=== PATIENT | female | born 1990 | race Caucasian/White ===

== ENCOUNTER 2017-09-03 10:57 | Day surgery (SDC) | payer OTHER ==
--- NOTE | 2017-09-03 09:00 | HP ---
DATE OF SURGERY: 09/03/2017 HISTORY OF PRESENT ILLNESS: The patient is a 27 year-old who is having problems with increasing size, enlarging cyst or nodules chest and back increasing in size, increasing discomfort. She is concerned and desires definitive excision. PAST MEDICAL HISTORY: Some reflux and some anxiety. PAST SURGICAL HISTORY: Cholecystectomy in the past. MEDICATIONS: Ranitidine and amitriptyline. ALLERGIES: PENICILLIN. FAMILY HISTORY: Lung cancer and Parkinson's. SOCIAL HISTORY: No smoking or alcohol abuse. The patient did quit smoking back in June. She smoked half a pack per day prior to that. REVIEW OF SYSTEMS: Twelve systems reviewed per admission assessment. No chest pain or palpitations other systems negative or noncontributory as above and per preadmission questionnaire. PHYSICAL EXAMINATION: GENERAL: No acute distress. HEENT: Sclerae nonicteric. NECK: No JVD. CHEST: Clear to auscultation. Mid chest enlarging cyst or nodule. BACK: Enlarging cyst or nodule. CVS: Regular rate and rhythm. ABDOMEN: Soft. No peritoneal signs. EXTREMITIES: No significant edema. NEURO: Alert, moving extremities symmetrically. No gross motor deficits noted. IMPRESSION: Enlarging cyst or nodules back and chest. I feel she will benefit from excisional biopsy. Risks and benefits explained in detail but not limited to bleeding or infection, risk of wound dehiscence or infection possibly requiring packing, risk of aches, pain, burning or numbness possible detention or chronic in nature. She understands what we excise likely will not recur if benign on path but she could develop similar cysts or nodules adjacent to or elsewhere on her body. She understands all the above and agrees to the planned procedure. We will proceed with excisional biopsy of enlarging cyst or nodules chest and back as an outpatient.
[~2017-09-03 10:57] MED LIST: Lactated Ringers 1,000 ML IV SCH
[2017-09-03] MEDS ORDERED: Quelicin Fliptop 200 MG/10 ML IJ ONE (10:58)
[2017-09-03] MEDS ORDERED: TORAdol 30 mg Injection IJ ONE (10:58)
[2017-09-03] MEDS ORDERED: SUBLIMAZE 100 MCG/2 ML IV ONE (10:58)
[2017-09-03] MEDS ORDERED: DIPRIVAN 200 MG/20 ML IV ONE (10:58)
[2017-09-03] MEDS ORDERED: Decadron 4 MG INJ IV ONE (10:58)
[2017-09-03] MEDS ORDERED: Zemuron 100 MG/10 ML IJ ONE (10:58)
[2017-09-03] MEDS ORDERED: Zofran 4 MG/2 ML VIAL IV ONE (10:58)
[2017-09-03] MEDS ORDERED: Levofloxacin 500MG/100ML D5W 500 MG/100 ML BAG IV STA (11:12)
[2017-09-03] MEDS ORDERED: Lactated Ringers 1,000 ML IV ONE ×2 (11:17→12:23)
[2017-09-03] MEDS ORDERED: Sensorcaine 0.25% 10 ML ONE (12:23)
[2017-09-03] MEDS ORDERED: DILAUDID 2 MG INJECTION ONE (14:55)
[2017-09-03 17:09] VITALS: O2SAT 99
[2017-09-03 17:10] VITALS: BP 120/93; PULSE 82
--- NOTE | 2017-09-04 09:47 | OP ---
SURGERY DATE/TIME: 09/03/2017 1353 PREOPERATIVE DIAGNOSIS: Enlarging cyst or subcu nodule chest and back. POSTOPERATIVE DIAGNOSIS: Enlarging cyst or subcu nodule chest and back. PROCEDURES: 1) Excisional biopsy approximately 2 cm margin cyst back with intermediate closure. 2) Excisional biopsy approximately 1 cm margin cyst chest with intermediate closure. SURGEON: Dr. Arpit Helton. ANESTHESIA: General. ESTIMATED BLOOD LOSS: Minimal. INDICATIONS: As noted above. Risks and benefits explained in detail and not limited to and consent obtained. DESCRIPTION OF PROCEDURE AND FINDINGS: In the preoperative holding area the site had been confirmed and marked with the patient. The patient is taken to the operating room. General anesthesia introduced. Chest and breast area prepped and draped in usual sterile fashion. After official time out and no disagreement with planned procedure, marking in spindle-shaped fashion around what appeared to be a small, little pit. Dissection carried deep surrounding this inflamed what appeared to be a cyst dissecting down deep to normal appearing tissue. The specimen is passed off and measured about 1 cm in size. The wound was closed in intermediate fashion with interrupted 3-0 Vicryl in the deep superficial subcu. Skin closed with 4-0 Vicryl in running subcuticular fashion. 0.25% Marcaine local injected along the skin incision. Steri-Strips and sterile dressing applied. The patient tolerated the procedure well. There were no immediate complications. At this point the patient was repositioned, lateral position with the ivory bag axillary roll, appropriate padding and positioning per anesthesia and OR staff. The back is prepped and draped in usual sterile fashion. After official time out and no disagreement with planned procedure, there was a pit. It was unclear how large this cyst was going to be. Dissecting down to normal appearing tissue around this pit dissecting down around circumferentially around this cyst with reaction around the cyst measuring about 2 cm with margins dissecting down to normal appearing tissue. The specimen is passed off. There did not appear to be any other cysts or cyst material in the wound. The wound was irrigated out. Good hemostasis noted. Skin closed with interrupted 3-0 Vicryl in deep superficial subcu. Skin closed with 4-0 Vicryl in running subcuticular fashion with some interrupted 3-0 Prolene interrupted vertical mattress fashion used to reinforce the area given the location on the back. Steri-Strips and sterile dressing applied. The patient tolerated the procedure well. There were no immediate complications. There was no family available to discuss the findings with at this time. I will see her back in the office next week to address the findings.
== END 2017-09-03 16:30 | disposition home or self-care (01) ==
LOC: SDC 10:57
PROVIDERS: ATTEND Surgery
PROC: 0JB60ZZ Excision of Chest Subcutaneous Tissue and Fascia, Open Approach (ICD-10-PCS; principal; 2017-09-03)
PROC: 0JQ70ZZ Repair Back Subcutaneous Tissue and Fascia, Open Approach (ICD-10-PCS; 2017-09-03)
PROC: 0JB70ZZ Excision of Back Subcutaneous Tissue and Fascia, Open Approach (ICD-10-PCS; 2017-09-03)
PROC: 0JQ60ZZ Repair Chest Subcutaneous Tissue and Fascia, Open Approach (ICD-10-PCS; 2017-09-03)
DX: D23.5 Other benign neoplasm of skin of trunk (principal); R20.8 Other disturbances of skin sensation; K21.9 Gastro-esophageal reflux disease without esophagitis; F41.9 Anxiety disorder, unspecified; Z79.899 Other long term (current) drug therapy
CPT/HCPCS: 84703; 94250; J0330; J1100; J1170; J1885; J1956; J2405; J2704; J3010

== ENCOUNTER 2018-01-09 00:53 | Emergency (ER) | payer OTHER ==
[2018-01-09 01:01] VITALS: BP 118/76; PULSE 92; O2SAT 96
--- NOTE | 2018-01-09 01:16 | ERPHSYRPT ---
- History of Present Illness Time Seen by Provider: 01/09/18 01:08 Source: patient Exam Limitations: no limitations Patient Subjective Stated Complaint: Almost 15 weeks and is bleeding large clots Triage Nursing Assessment: Pt c/o of bleeding clots and is approx 15 weeks , bled some last Sunday for a couple of days but it wasn't as much, denies cramping, denies N&V, has 2 other children, vitals wnl, Physician History: The patient is a 27-year-old at nearly 15 weeks with her complaining of passing large clots vaginally tonight after having sexual intercourse. She also had mild vaginal bleeding one week ago. She has OB care in [place] and not locally. She has had prior ultrasounds that have been normal. Today she denies cramping or abdominal pain. She takes vitamin. Timing/Duration: today, sudden Activites at Onset: sexual activity Quality: other (none) Pain Radiation: none Severity of Pain-Max: none Severity of Pain-Current: none Prior abdominal problems: similar symptoms Sexual intercourse history: single partner Modifying Factors: Improves With: nothing Associated Symptoms: vaginal discharge (blood) Allergies/Adverse Reactions: Penicillins Allergy (Verified 01/09/18 01:02) Home Medications: Vits W-Ca,Fe,FA(<1Mg) [] 1 each PO DAILY 01/09/18 [History] Hx Tetanus, Diphtheria Vaccination/Date Given: Yes Hx Influenza Vaccination/Date Given: Yes Hx Pneumococcal Vaccination/Date Given: No - Review of Systems Constitutional: No Fever, No Chills Eyes: No Symptoms Ears, Nose, & Throat: No Symptoms Respiratory: No Cough, No Dyspnea Cardiac: No Chest Pain, No Edema, No Syncope Abdominal/Gastrointestinal: No Abdominal Pain, No Nausea, No Vomiting, No Diarrhea Genitourinary Symptoms: Vaginal Bleeding, No Dysuria Musculoskeletal: No Back Pain, No Neck Pain Skin: No Rash Neurological: No Dizziness, No Focal Weakness, No Sensory Changes Psychological: No Symptoms Endocrine: No Symptoms Hematologic/Lymphatic: No Symptoms Immunological/Allergic: No Symptoms All Other Systems: Reviewed and Negative - Past Medical History Pertinent Past Medical History: Yes Neurological History: No Pertinent History ENT History: No Pertinent History Cardiac History: No Pertinent History Respiratory History: No Pertinent History Endocrine Medical History: No Pertinent History Musculoskeletal History: No Pertinent History GI Medical History: GERD History: No Pertinent History Psycho-Social History: No Pertinent History Female Reproductive Disorders: No Pertinent History - Past Surgical History Past Surgical History: Yes Neuro Surgical History: No Pertinent History Cardiac: No Pertinent History Respiratory: No Pertinent History Gastrointestinal: Cholecystectomy Genitourinary: No Pertinent History Musculoskeletal: No Pertinent History Female Surgical History: No Pertinent History - Social History Smoking Status: Former smoker Exposure to second hand smoke: No Drug Use: none Patient Lives Alone: No - Female History Hx Now: Yes Expected Date of Delivery: 07/07/18 - Nursing Vital Signs Nursing Vital Signs: Initial Vital Signs Temperature 99.2 F 01/09/18 00:54 Pulse Rate 92 H 01/09/18 00:54 Blood Pressure 118/76 01/09/18 00:54 O2 Sat by Pulse Oximetry 96 01/09/18 00:54 Pain Scale Pain Intensity 0 - Physical Exam General Appearance: no apparent distress, alert Eye Exam: PERRL/EOMI, eyes nml inspection Ears, Nose, Throat Exam: normal ENT inspection, TMs normal, pharynx normal, moist mucous membranes Neck Exam: normal inspection, non-tender, supple, full range of motion Respiratory Exam: normal breath sounds, lungs clear, No respiratory distress Cardiovascular Exam: regular rate/rhythm, normal heart sounds, normal peripheral pulses Gastrointestinal/Abdomen Exam: soft, No tenderness, No mass Pelvic Exam: not done Rectal Exam: not done Back Exam: normal inspection, normal range of motion, No CVA tenderness, No vertebral tenderness Extremity Exam: normal inspection, normal range of motion, pelvis stable Neurologic Exam: alert, oriented x 3, cooperative, chief electrician II-XII nml as tested, normal mood/affect, sensation nml, No motor deficits Skin Exam: normal color, warm, dry Lymphatic Exam: No adenopathy SpO2 Interpretation: normal SpO2: 96 Oxygen Delivery: Room Air - Radiology Ultrasound Exam OB Ultrasound: negative, Other (FHR 152; cervix closed. fetus measures 14 wks 3 days, per U/S tech) Ordered Tests: Active Orders 24 hr Category Date Time Status Clean Catch Urine Specimen STAT Care 01/09/18 01:20 Active Heart Tones-ED STAT Care 01/09/18 01:20 Active IV Insertion STAT Care 01/09/18 01:20 Active OB >14 WKS 1st GESTATION [US] Stat Exams 01/09/18 01:21 Taken BMP Stat Lab 01/09/18 01:29 Completed CBC W DIFF Stat Lab 01/09/18 01:29 Completed HCG, Quantitative (Inhouse) Stat Lab 01/09/18 01:29 Completed UA W/RFX UR CULTURE Stat Lab 01/09/18 02:21 Received Medication Summary Discontinued Medications Generic Name Dose Route Start Last Admin Trade Name Delfina PRN Reason Stop Dose Admin Sodium Chloride 1,000 mls @ 999 mls/hr 01/09/18 01:20 01/09/18 01:27 Sodium Chloride 0.9% 1000 Ml IV 01/09/18 02:20 999 mls/hr .Q1H1M STA Administration Sodium Chloride Confirm 01/09/18 01:28 Sodium Chloride 0.9% 1000 Ml Administered 01/09/18 01:29 Dose 1,000 mls @ ud .ROUTE .STK-MED ONE Lab/Rad Data: Laboratory Result Diagrams 01/09/18 01:29 01/09/18 01:29 Laboratory Results 01/09/18 01/09/18 01/09/18 Range/Units 02:21 01:29 01:29 WBC 11.7 H (4.0-10.5) K/mm3 RBC 4.09 L (4.1-5.4) M/mm3 Hgb 13.0 (12.0-16.0) gm/dl Hct 35.8 (35-47) % MCV 87.5 (78-100) fl MCH 31.7 (26-32) pg MCHC 36.3 H (32-36) g/dl RDW 12.9 (11.5-14.0) % Plt Count 295 (150-450) K/mm3 MPV 10.1 H (6-9.5) fl Gran % 60.2 (36.0-66.0) % Eos # (Auto) 0.11 (0-0.5) Absolute Lymphs (auto) 3.66 (1.0-4.6) Absolute Monos (auto) 0.87 (0.0-1.3) Lymphocytes % 31.2 (24.0-44.0) % Monocytes % 7.4 (0.0-12.0) % Eosinophils % 0.9 (0.00-5.0) % Basophils % 0.3 (0.0-0.4) % Absolute Granulocytes 7.05 H (1.4-6.9) Basophils # 0.03 (0-0.4) Sodium 138 (137-145) mmol/L Potassium 3.5 (3.5-5.1) mmol/L Chloride 104 (98-107) mmol/L Carbon Dioxide 25 (22-30) mmol/L Anion Gap 12.1 (5-15) MEQ/L BUN 5 L (7-17) mg/dL Creatinine 0.43 L (0.52-1.04) mg/dL Estimated GFR > 60.0 ML/MIN Glucose 96 (74-106) mg/dL Calcium 10.2 (8.4-10.2) mg/dL Beta HCG, Quant 27435 mIU/ml Ur Collection Type Pending Urine Color Pending Urine Appearance Pending Urine pH Pending Ur Specific [place] Pending Urine Protein Pending Urine Ketones Pending Urine Blood Pending Urine Nitrite Pending Urine Bilirubin Pending Urine Urobilinogen Pending Ur Leukocyte Esterase Pending Urine Culture Reflexed Pending Urine Glucose Pending Specimen Received Pending - Progress Progress: improved, unchanged Air Movement: good Progress Note: 01/09/18 01:19 heart tones found; FHT 152 bpm. Blood Culture(s) Obtained: No Antibiotics given: No Counseled pt/family regarding: lab results, diagnosis, need for follow-up, rad results - Departure Time of Disposition: 02:34 Departure Disposition: Home Clinical Impression: Vaginal bleeding during Condition: Stable Critical Care Time: No Referrals: FREDERICK PHILLIPS [Primary Care Provider] - Additional Instructions: You have an episode of vaginal bleeding while . Remain on bedrest until following up with your OB doctor later this week. Refrain from sexual intercourse until following up with your OB doctor.
[2018-01-09] MEDS ORDERED: Sodium Chloride 0.9% 1000 ML 1,000 ML IV STA (01:20)
[2018-01-09] MEDS ORDERED: Sodium Chloride 0.9% 1000 ML 1,000 ML ONE (01:28)
[2018-01-09 01:31] LABS: BASOPHIL % 0.3 % (0.0-0.4); Basophil (Absolute #) 0.03 (0-0.4); Eosinophil % 0.9 % (0.00-5.0); Eosinophil (Absolute #) 0.11 (0-0.5); Granulocyte Absolute (ANC) 7.05 (1.4-6.9); Granulocytes % 60.2 % (36.0-66.0); Hematocrit 35.8 % (35-47); Lymphocyte (Absolute #) 3.66 (1.0-4.6); Lymphocytes % 31.2 % (24.0-44.0); Mean Cell Volume 87.5 fl (78-100); Mean Corpuscular Hemoglobin 31.7 pg (26-32); Mean Corpuscular Hgb Concent. 36.3 g/dl (32-36); Mean Platelet Volume 10.1 fl (6-9.5); Monocyte (Absolute #) 0.87 (0.0-1.3); Monocytes % 7.4 % (0.0-12.0); Platelet Count 295 K/mm3 (150-450); Red Blood Count 4.09 M/mm3 (4.1-5.4); Red Cell Distribution Width 12.9 % (11.5-14.0); White Blood Count 11.7 K/mm3 (4.0-10.5)
[2018-01-09 02:06] LABS: ANION GAP 12.1 MEQ/L (5-15); BLOOD UREA NITROGEN 5 mg/dL (7-17); CHLORIDE 104 mmol/L (98-107); Calcium 10.2 mg/dL (8.4-10.2); Carbon Dioxide 25 mmol/L (22-30); Creatinine 1 0.43 mg/dL (0.52-1.04); Glucose 96 mg/dL (74-106); Potassium 3.5 mmol/L (3.5-5.1); SODIUM 138 mmol/L (137-145)
[2018-01-09 02:31] LABS: HCG, Quantitative (Inhouse) 38398 mIU/ml
[2018-01-09 02:33] LABS: Appearance SLIGHTLY CLOUDY (CLEAR); Bacteria FEW /HPF (NEGATIVE); Bilirubin NEGATIVE (NEGATIVE); Blood 250 Ery/ul (0-5); Epithelial Cells FEW /HPF (FEW); Glucose NEGATIVE (NEGATIVE); Ketones NEGATIVE (NEGATIVE); Leukocyte Esterase TRACE (NEGATIVE); Nitrite NEGATIVE (NEGATIVE); Protein,Urine Dip NEGATIVE (Negative); RBC 50-100 /HPF (0-2); Urobilinogen NORMAL mg/dL (0-1)
--- NOTE | 2018-01-09 08:37 | XRAY ---
Exam: OB ultrasound greater than 14 weeks examination from 01/09/2018. Comparison: OB ultrasound examination less than 14 weeks from 11/28/2017. Indication: Vaginal bleeding during early second trimester . The exam was performed on an emergency basis at 0146 hours on 01/09/2018. Findings: A single live intrauterine fetus was identified in a variable lie. On some images the fetus appears to be breech and other images it appears to be relatively transverse. heart rate measured 152 bpm. Early formation of the placenta appears to be anterior. I see no evidence of placenta abruption or placenta previa. The length of the maternal cervical canal is 4.01 cm which is within normal limits. The maternal cervix appears closed. Qualitatively, the amount of amniotic fluid appears unremarkable. An amniotic fluid index was not obtained. Measurements of the biparietal diameter, head circumference, abdominal circumference, and femur length suggest an average composite gestational age of 14 weeks 3 days plus or -1 week 0 days yielding an estimated due date of 07/07/2018. This is the exact accordance with the gestational age by dates as well as the prior OB ultrasound exam, i.e. satisfactory intrauterine growth since the prior exam of 11/28/2017. Estimated weight is 100.85 g plus or -15.13 g (4 pounds plus or -1 ounce). This is in the 44.5 percentile. Both cephalic index and head circumference to abdominal circumference ratios are within normal limits. A detailed anatomy scan was not performed on this emergent ultrasound. Impression: 1. 14 week 3 day single live intrauterine fetus in variable lie representing normal intrauterine growth since the prior OB ultrasound exam from 11/28/2017. The heart rate measured 152 bpm. 2. The placenta is anterior. I see no evidence of retroplacental clot or abruption of the placenta. Also, no placenta previa is seen. 3. The amount of amniotic fluid appears qualitatively normal. 4. The maternal cervical canal measures 4.01 cm in length is normal. The maternal cervix appears closed.
== END 2018-01-09 02:47 | disposition home or self-care (01) ==
LOC: ED 00:53
DX: O46.92 Antepartum hemorrhage, unspecified, second trimester (principal); Z3A.15 15 weeks gestation of pregnancy
CPT/HCPCS: 36000; 36415; 76805; 80048; 81000; 84702; 85025; 87086; 96360; 99284

== ENCOUNTER 2018-04-26 09:07 | Observation (INO) | payer OTHER ==
--- NOTE | 2018-04-26 09:21 | ERPHSYRPT ---
- History of Present Illness Time Seen by Provider: 04/26/18 09:18 Source: patient Physician History: mild ache sacrum today at work, slipped on the ice, no bleeding, no abdominal pain, no vaginal bleeding, pt ambulatory, pt refused pain med, no other injury, no neck pain Allergies/Adverse Reactions: Penicillins Allergy (Verified 04/26/18 09:20) Home Medications: Vits W-Ca,Fe,FA(<1Mg) [] 1 each PO DAILY 01/09/18 [History] Hx Tetanus, Diphtheria Vaccination/Date Given: Yes Hx Influenza Vaccination/Date Given: Yes Hx Pneumococcal Vaccination/Date Given: No - Review of Systems Constitutional: No Fatigue Eyes: No Vision Changes Respiratory: No Dyspnea Cardiac: No Chest Pain Abdominal/Gastrointestinal: No Abdominal Pain Musculoskeletal: Fall Neurological: No Dizziness - Past Medical History Pertinent Past Medical History: Yes Neurological History: No Pertinent History ENT History: No Pertinent History Cardiac History: No Pertinent History Respiratory History: No Pertinent History Endocrine Medical History: No Pertinent History Musculoskeletal History: No Pertinent History GI Medical History: GERD History: No Pertinent History Psycho-Social History: No Pertinent History Female Reproductive Disorders: No Pertinent History - Past Surgical History Past Surgical History: Yes Neuro Surgical History: No Pertinent History Cardiac: No Pertinent History Respiratory: No Pertinent History Gastrointestinal: Cholecystectomy Genitourinary: No Pertinent History Musculoskeletal: No Pertinent History Female Surgical History: No Pertinent History - Social History Smoking Status: Former smoker Exposure to second hand smoke: No Drug Use: none Patient Lives Alone: No - Nursing Vital Signs Nursing Vital Signs: Initial Vital Signs Temperature 98.0 F 04/26/18 09:11 Pulse Rate 98 H 04/26/18 09:11 Respiratory Rate 16 04/26/18 09:11 Blood Pressure 117/76 04/26/18 09:11 O2 Sat by Pulse Oximetry 100 04/26/18 09:11 Pain Scale Pain Intensity 3 - Physical Exam General Appearance: no apparent distress Eye Exam: eyes nml inspection Respiratory Exam: No respiratory distress Back Exam: other (tender sacrum, nontender midline spine, no sts, no ecchymosis) Extremity Exam: normal range of motion Neurologic Exam: alert, oriented x 3, cooperative, normal mood/affect Skin Exam: normal color, warm, dry - Course Nursing assessment & vital signs reviewed: Yes Ordered Tests: Active Orders 24 hr Category Date Time Status Heart Tones-ED STAT Care 04/26/18 09:17 Active - Progress Progress: unchanged Progress Note: 04/26/18 09:30 d/w Dr Simeon and the pt, will defer an xray a this time, send to L and D for monitoring Discussed with .: Cailin Will see patient in: hospital (observation) Counseled pt/family regarding: diagnosis - Departure Time of Disposition: 09:31 Departure Disposition: Observation Clinical Impression: Back injury Qualifiers: Encounter type: initial encounter Qualified Code(s): S39.92XA - Unspecified injury of lower back, initial encounter Condition: Stable Critical Care Time: No Referrals: FREDERICK SIMEON [Primary Care Provider] - Instructions: Contusion (DC)
[2018-04-26 09:58] VITALS: O2SAT 98
--- NOTE | 2018-04-26 11:02 | XRAY ---
Indication: Status post fall. 2-dimensional OB ultrasound performed. Comparison: January 09, 2018. Again there is a single viable intrauterine currently in breech presentation. Normal four-chamber heart with heart rate 163 BPM. Normal three-vessel cord and cord insertion. Visualized head, stomach, kidneys, and bladder are unremarkable. Anterior placenta without abruption/previa. BPD measures 7.69 cm corresponding to 30 weeks 6 days. HC measures 27.19 cm corresponding to 29 weeks 5 days. AC measures 26.33 cm corresponding to 30 weeks 3 days. FL measures 5.62 cm corresponding to 29 weeks 4 days. GLORIA is 10.1 cm. Impression: Again single viable intrauterine with mean gestational age 30 weeks 1 day. Normal progression of . No new/acute findings.
[2018-04-26 14:02] VITALS: BP 119/58; PULSE 110
== END 2018-04-26 15:15 | disposition home or self-care (01) ==
LOC: ED 09:07 → OB 09:48
PROVIDERS: ADMIT Family Medicine; ATTEND Family Medicine
DX: Z34.92 Encounter for supervision of normal pregnancy, unspecified, second trimester (principal); S39.92XA Unspecified injury of lower back, initial encounter; W00.0XXA Fall on same level due to ice and snow, initial encounter; Y93.01 Activity, walking, marching and hiking; Y92.480 Sidewalk as the place of occurrence of the external cause; Y99.0 Civilian activity done for income or pay
CPT/HCPCS: 76805; 99284; G0378

== ENCOUNTER 2020-07-06 07:14 | Inpatient (IN) | payer OTHER ==
[2020-07-06] MEDS ORDERED: TYLENOL EXTRA STRENGTH 500 MG PO PRN (07:49)
[2020-07-06] MEDS ORDERED: Lactated Ringers 1,000 ML IV SCH (08:00)
[2020-07-06] MEDS ORDERED: PITOCIN 30 UNITS/ LR 500 ML 30 UNITS/500 ML IV.SOLN. IV SCH (08:00)
[2020-07-06 08:18] LABS: Amphetamine,Urine NEGATIVE (NEGATIVE); Barbiturate,Urine NEGATIVE (NEGATIVE); Benzodiazepine,Urine NEGATIVE (NEGATIVE); Cocaine,Urine NEGATIVE (NEGATIVE); Methadone,Urine NEGATIVE (NEGATIVE); Opiate,Urine NEGATIVE (NEGATIVE); PCP,Urine NEGATIVE (NEGATIVE); THC,Urine NEGATIVE (NEGATIVE)
[2020-07-06 08:21] LABS: Absolute Neutrophil Ct (ANC) 5.48 (1.4-6.9); BASOPHIL % 0.4 % (0.0-0.4); Basophil (Absolute #) 0.04 (0-0.4); Eosinophil % 0.9 % (0.00-5.0); Eosinophil (Absolute #) 0.08 (0-0.5); Hematocrit 32.9 % (35-47); Hemoglobin 10.6 gm/dl (12.0-16.0); Lymphocyte (Absolute #) 2.46 (1.0-4.6); Lymphocytes % 27.2 % (24.0-44.0); Mean Cell Volume 85.2 fl (78-100); Mean Corpuscular Hemoglobin 27.5 pg (26-32); Mean Corpuscular Hgb Concent. 32.2 g/dl (32-36); Mean Platelet Volume 10.7 fl (7.5-11.0); Monocyte (Absolute #) 0.97 (0.0-1.3); Monocytes % 10.7 % (0.0-12.0); Neutrophil % 60.8 % (36.0-66.0); Platelet Count 310 K/mm3 (150-450); Red Blood Count 3.86 M/mm3 (4.1-5.4)
[2020-07-06] MEDS ORDERED: OB EPIDURAL NAROPIN/SUFENTANIL IN NACL EPIDURAL PRN (16:15)
[2020-07-06] MEDS ORDERED: Lactated Ringers 1,000 ML IV ONE (16:15)
[2020-07-06] MEDS ORDERED: Ephedrine Sulfate 50 MG/ML IV PRN (16:15)
[2020-07-06] MEDS ORDERED: XYLOCAINE 2%/Epi 1:200000 20ML VIAL MPF ONE (18:51)
[2020-07-06] MEDS ORDERED: Pitocin 10 UNITS/ML ONE ×2 (18:54→19:32)
[2020-07-06] MEDS ORDERED: CLINDAMYCIN-D5W 900 MG/50 ML*** 900 MG/50 ML BAG IV ONE (19:09)
[2020-07-06] MEDS ORDERED: Astramorph-Pf 5 MG/10 ML ONE (19:12)
[2020-07-06] MEDS ORDERED: Versed 2 MG/2 ML Injection ONE (19:16)
[2020-07-06] MEDS ORDERED: MARCAINE 0.5%-EPI 1:200,000 VL IJ ONE (19:39)
[2020-07-06] MEDS ORDERED: DEMEROL 50 MG ONE (20:08)
[2020-07-06 20:34] LABS: ALBUMIN 3.2 g/dL (3.5-5.0); ALKALINE PHOSPHATASE 186 U/L (38-126); ANION GAP 14.4 MEQ/L (5-15); BLOOD UREA NITROGEN 9 mg/dL (7-17); CHLORIDE 105 mmol/L (98-107); Creatinine 1 0.64 mg/dL (0.52-1.04); EST GLOMERULAR FILTRATION RATE > 60.0 ML/MIN; Glucose 156 mg/dL (74-106); Potassium 3.3 mmol/L (3.5-5.1); SGOT/AST 25 U/L (14-36); SGPT/ALT 18 U/L (0-35); SODIUM 131 mmol/L (137-145); Total Protein 6.2 g/dL (6.3-8.2)
[2020-07-06 20:43] LABS: Carbon Dioxide 15 mmol/L (22-30)
[2020-07-06 22:05] LABS: ABO TYPING O; ANTIBODY SCREEN NEGATIVE (NEGATIVE); RH TYPING NEGATIVE
[2020-07-06] MEDS ORDERED: Dulcolax 10 MG SUPP PR PRN (22:49)
[2020-07-06] MEDS ORDERED: LANSINOH 40 GM TOP PRN (22:49)
[2020-07-06] MEDS ORDERED: TUCKS TP PRN (22:49)
[2020-07-06] MEDS ORDERED: Anucort-HC SUPPOSITORY PR PRN (22:49)
[2020-07-06] MEDS ORDERED: Mylicon 80MG PO PRN (22:49)
[2020-07-06] MEDS ORDERED: CORTISONE 1% CREAM TP PRN (22:49)
[2020-07-06 22:50] LABS: Appearance SLIGHTLY CLOUDY (CLEAR); Bilirubin NEGATIVE (NEGATIVE); Blood SMALL Ery/ul (0-5); Glucose >=500 mg/dL (NEGATIVE); Ketones MODERATE (NEGATIVE); Leukocyte Esterase NEGATIVE (NEGATIVE); Mucus SLIGHT /HPF (NEGATIVE); Nitrite NEGATIVE (NEGATIVE); Protein,Urine Dip 100 (Negative); Specific Gravity 1.017 (1.005-1.025); Urobilinogen NEGATIVE mg/dL (0-1)
[2020-07-06] MEDS: Sodium Chloride 0.9% 1000 ML 1,000 ML IV SCH (23:03)
[2020-07-06] MEDS ORDERED: Nubain 10 MG/ML IV PRN (23:04)
[2020-07-06] MEDS ORDERED: BENADRYL 50 MG/ML IV PRN (23:04)
[2020-07-06] MEDS ORDERED: HOLD NARCOTIC ANALGESICS AND SEDATIVES X24 HR MC PRN (23:04)
[2020-07-06] MEDS ORDERED: MORPHINE SULFATE 2 MG INJ IV PRN (23:04)
[2020-07-06] MEDS ORDERED: Narcan 0.4 MG/ML IV PRN (23:04)
[2020-07-06] MEDS ORDERED: CLARITIN 10 MG PO PRN (23:04)
[2020-07-06] MEDS ORDERED: Zofran 4 MG/2 ML VIAL IV PRN (23:04)
[2020-07-06] MEDS ORDERED: DEMEROL 50 MG IV PRN (23:04)
[2020-07-07] MEDS: CLINDAMYCIN-D5W 900 MG/50 ML*** 900 MG/50 ML BAG IV SCH ×2 (03:24→11:15)
[2020-07-07] MEDS: PERCOCET TABLET 5/325MG PO PRN ×3 (05:09→21:11)
[2020-07-07 05:16] LABS: Absolute Neutrophil Ct (ANC) 12.66 (1.4-6.9); BASOPHIL % 0.1 % (0.0-0.4); Basophil (Absolute #) 0.02 (0-0.4); Eosinophil % 0.1 % (0.00-5.0); Eosinophil (Absolute #) 0.01 (0-0.5); Hematocrit 26.8 % (35-47); Hemoglobin 8.5 gm/dl (12.0-16.0); Lymphocytes % 15.4 % (24.0-44.0); Mean Cell Volume 86.7 fl (78-100); Mean Corpuscular Hemoglobin 27.5 pg (26-32); Mean Corpuscular Hgb Concent. 31.7 g/dl (32-36); Mean Platelet Volume 10.6 fl (7.5-11.0); Monocyte (Absolute #) 1.04 (0.0-1.3); Monocytes % 6.4 % (0.0-12.0); Platelet Count 260 K/mm3 (150-450); Red Blood Count 3.09 M/mm3 (4.1-5.4); Red Cell Distribution Width 13.8 % (11.5-14.0); White Blood Count 16.2 K/mm3 (4.0-10.5)
[2020-07-07 05:18] LABS: ANION GAP 5.7 MEQ/L (5-15); BLOOD UREA NITROGEN 7 mg/dL (7-17); CHLORIDE 107 mmol/L (98-107); Calcium 8.5 mg/dL (8.4-10.2); Carbon Dioxide 24 mmol/L (22-30); Creatinine 1 0.57 mg/dL (0.52-1.04); EST GLOMERULAR FILTRATION RATE > 60.0 ML/MIN; Glucose 86 mg/dL (74-106); SODIUM 132 mmol/L (137-145)
[2020-07-07 05:44] LABS: Potassium 4.3 mmol/L (3.5-5.1)
--- NOTE | 2020-07-07 08:08 | PCM.NOTE ---
Date and Time: 07/07/20806 Subjective Assessment: POD 1 SP CSECTION PT RESTING IN BED AND DOING WELL. ABLE TO AMBULATE AND TOLERATE DIET. VSS AFEBRILE ABD; SOFT INCISION C/D/INTACT UTERUS; FIRM LOCHIA; MILD HGB; 8.5 A/P SP CSECTION POD 1 WITH ANEMIA WILL REPEAT CBC AT NOON TODAY CPM OBJECTIVE DATA Vital Signs: Vital Signs - 24 hr Temp Pulse Resp BP BP Pulse Ox 07/07/20 06:00 98 F 95 H 20 101/56 100 07/07/20 05:00 98 F 108 H 18 100 07/07/20 04:00 98 07/07/20 03:00 97 07/07/20 02:00 99 07/07/20 01:15 99 F 83 18 117/62 97 07/07/20 01:00 99 07/07/20 00:26 98 F 94 H 20 117/62 100 07/07/20 00:00 99.2 F 111 H 16 132/76 98 07/06/20 23:30 114 H 20 125/71 98 07/06/20 23:26 99 H 20 125/71 99 07/06/20 23:00 101 H 18 122/82 97 07/06/20 22:45 105 H 18 118/78 98 07/06/20 22:30 114 H 20 129/77 97 07/06/20 22:26 114 H 20 129/77 98 07/06/20 22:11 98.5 F 93 H 18 135/86 98 07/06/20 22:00 98.5 F 92 H 20 135/86 100 07/06/20 21:00 125/58 07/06/20 20:52 97.9 F 108 H 20 167/67 97 07/06/20 20:38 97.6 F 100 H 20 116/58 98 07/06/20 19:00 94 H 18 103/59 07/06/20 18:30 107 H 18 116/65 07/06/20 18:00 111 H 113/56 100 07/06/20 17:30 104 H 107/53 07/06/20 17:00 98.1 F 94 H 18 125/58 100 07/06/20 16:30 98.1 F 07/06/20 13:32 98.1 F 07/06/20 12:00 87 18 112/70 Pain Assessment - Last Documented Pain Intensity [Anterior/ 0 Posterior] Pain Intensity 0 Pain Scale Used 0-10 Pain Scale Intake and Output: Intake & Output 07/04/20 07/05/20 07/06/20 07/07/20 11:59 11:59 11:59 11:59 Intake Total 750 Output Total 1410 Balance -660 Weight 90.718 kg Lab Results: Lab Results-Last 24 Hours 07/06/20 07/06/20 07/06/20 Range/Units 07:49 08:03 15:42 WBC 9.0 (4.0-10.5) K/mm3 RBC 3.86 L (4.1-5.4) M/mm3 Hgb 10.6 L (12.0-16.0) gm/dl Hct 32.9 L (35-47) % MCV 85.2 (78-100) fl MCH 27.5 (26-32) pg MCHC 32.2 (32-36) g/dl RDW 14.0 (11.5-14.0) % Plt Count 310 (150-450) K/mm3 MPV 10.7 (7.5-11.0) fl Gran % 60.8 (36.0-66.0) % Eos # (Auto) 0.08 (0-0.5) Absolute Lymphs (auto) 2.46 (1.0-4.6) Absolute Monos (auto) 0.97 (0.0-1.3) Lymphocytes % 27.2 (24.0-44.0) % Monocytes % 10.7 (0.0-12.0) % Eosinophils % 0.9 (0.00-5.0) % Basophils % 0.4 (0.0-0.4) % Absolute Granulocytes 5.48 (1.4-6.9) Basophils # 0.04 (0-0.4) Kleihauer-Betke F Hgb Sodium (137-145) mmol/L Potassium (3.5-5.1) mmol/L Chloride (98-107) mmol/L Carbon Dioxide (22-30) mmol/L Anion Gap (5-15) MEQ/L BUN (7-17) mg/dL Creatinine (0.52-1.04) mg/dL Estimated GFR ML/MIN Glucose (74-106) mg/dL Calcium (8.4-10.2) mg/dL Total Bilirubin (0.2-1.3) mg/dL AST (14-36) U/L ALT (0-35) U/L Alkaline Phosphatase (38-126) U/L Serum Total Protein (6.3-8.2) g/dL Albumin (3.5-5.0) g/dL Urine Color (YELLOW) Urine Appearance (CLEAR) Urine pH (5-6) Ur Specific [place] (1.005-1.025) Urine Protein (Negative) Urine Ketones (NEGATIVE) Urine Blood (0-5) Leobardo/ul Urine Nitrite (NEGATIVE) Urine Bilirubin (NEGATIVE) Urine Urobilinogen (0-1) mg/dL Ur Leukocyte Esterase (NEGATIVE) Urine WBC (Auto) (0-5) /HPF Urine RBC (Auto) (0-2) /HPF U Epithel Cells (Auto) (FEW) /HPF Urine Bacteria (Auto) (NEGATIVE) /HPF Urine Mucus (Auto) (NEGATIVE) /HPF Urine Culture Reflexed (NO) Urine Glucose (NEGATIVE) mg/dL POC Amnio Swab Test Positive Urine Opiates Level NEGATIVE (NEGATIVE) Ur Methadone NEGATIVE (NEGATIVE) Urine Barbiturates NEGATIVE (NEGATIVE) Ur Phencyclidine (PCP) NEGATIVE (NEGATIVE) Urine Amphetamine NEGATIVE (NEGATIVE) U Benzodiazepine Level NEGATIVE (NEGATIVE) Urine Cocaine NEGATIVE (NEGATIVE) Urine Marijuana (THC) NEGATIVE (NEGATIVE) Antibody Screen (NEGATIVE) ABO Group Rh Factor 07/06/20 07/06/20 07/06/20 Range/Units 20:12 20:12 20:18 WBC (4.0-10.5) K/mm3 RBC (4.1-5.4) M/mm3 Hgb (12.0-16.0) gm/dl Hct (35-47) % MCV (78-100) fl MCH (26-32) pg MCHC (32-36) g/dl RDW (11.5-14.0) % Plt Count (150-450) K/mm3 MPV (7.5-11.0) fl Gran % (36.0-66.0) % Eos # (Auto) (0-0.5) Absolute Lymphs (auto) (1.0-4.6) Absolute Monos (auto) (0.0-1.3) Lymphocytes % (24.0-44.0) % Monocytes % (0.0-12.0) % Eosinophils % (0.00-5.0) % Basophils % (0.0-0.4) % Absolute Granulocytes (1.4-6.9) Basophils # (0-0.4) Kleihauer-Betke F Hgb SEE SEPARATE REPORT Sodium 131 L (137-145) mmol/L Potassium 3.3 L (3.5-5.1) mmol/L Chloride 105 (98-107) mmol/L Carbon Dioxide 15 L* (22-30) mmol/L Anion Gap 14.4 (5-15) MEQ/L BUN 9 (7-17) mg/dL Creatinine 0.64 (0.52-1.04) mg/dL Estimated GFR > 60.0 ML/MIN Glucose 156 H (74-106) mg/dL Calcium 9.0 (8.4-10.2) mg/dL Total Bilirubin 0.70 (0.2-1.3) mg/dL AST 25 (14-36) U/L ALT 18 (0-35) U/L Alkaline Phosphatase 186 H (38-126) U/L Serum Total Protein 6.2 L (6.3-8.2) g/dL Albumin 3.2 L (3.5-5.0) g/dL Urine Color (YELLOW) Urine Appearance (CLEAR) Urine pH (5-6) Ur Specific [place] (1.005-1.025) Urine Protein (Negative) Urine Ketones (NEGATIVE) Urine Blood (0-5) Leobardo/ul Urine Nitrite (NEGATIVE) Urine Bilirubin (NEGATIVE) Urine Urobilinogen (0-1) mg/dL Ur Leukocyte Esterase (NEGATIVE) Urine WBC (Auto) (0-5) /HPF Urine RBC (Auto) (0-2) /HPF U Epithel Cells (Auto) (FEW) /HPF Urine Bacteria (Auto) (NEGATIVE) /HPF Urine Mucus (Auto) (NEGATIVE) /HPF Urine Culture Reflexed (NO) Urine Glucose (NEGATIVE) mg/dL POC Amnio Swab Test Urine Opiates Level (NEGATIVE) Ur Methadone (NEGATIVE) Urine Barbiturates (NEGATIVE) Ur Phencyclidine (PCP) (NEGATIVE) Urine Amphetamine (NEGATIVE) U Benzodiazepine Level (NEGATIVE) Urine Cocaine (NEGATIVE) Urine Marijuana (THC) (NEGATIVE) Antibody Screen NEGATIVE (NEGATIVE) ABO Group O Rh Factor NEGATIVE 07/06/20 07/07/20 07/07/20 Range/Units 22:26 04:15 04:15 WBC 16.2 H (4.0-10.5) K/mm3 RBC 3.09 L (4.1-5.4) M/mm3 Hgb 8.5 L (12.0-16.0) gm/dl Hct 26.8 L (35-47) % MCV 86.7 (78-100) fl MCH 27.5 (26-32) pg MCHC 31.7 L (32-36) g/dl RDW 13.8 (11.5-14.0) % Plt Count 260 (150-450) K/mm3 MPV 10.6 (7.5-11.0) fl Gran % 78.0 H (36.0-66.0) % Eos # (Auto) 0.01 (0-0.5) Absolute Lymphs (auto) 2.50 (1.0-4.6) Absolute Monos (auto) 1.04 (0.0-1.3) Lymphocytes % 15.4 L (24.0-44.0) % Monocytes % 6.4 (0.0-12.0) % Eosinophils % 0.1 (0.00-5.0) % Basophils % 0.1 (0.0-0.4) % Absolute Granulocytes 12.66 H (1.4-6.9) Basophils # 0.02 (0-0.4) Kleihauer-Betke F Hgb Sodium 132 L (137-145) mmol/L Potassium 4.3 D (3.5-5.1) mmol/L Chloride 107 (98-107) mmol/L Carbon Dioxide 24 (22-30) mmol/L Anion Gap 5.7 (5-15) MEQ/L BUN 7 (7-17) mg/dL Creatinine 0.57 (0.52-1.04) mg/dL Estimated GFR > 60.0 ML/MIN Glucose 86 (74-106) mg/dL Calcium 8.5 (8.4-10.2) mg/dL Total Bilirubin (0.2-1.3) mg/dL AST (14-36) U/L ALT (0-35) U/L Alkaline Phosphatase (38-126) U/L Serum Total Protein (6.3-8.2) g/dL Albumin (3.5-5.0) g/dL Urine Color YELLOW (YELLOW) Urine Appearance SLIGHTLY CLOUDY (CLEAR) Urine pH 6.0 (5-6) Ur Specific [place] 1.017 (1.005-1.025) Urine Protein 100 (Negative) Urine Ketones MODERATE (NEGATIVE) Urine Blood SMALL (0-5) Leobardo/ul Urine Nitrite NEGATIVE (NEGATIVE) Urine Bilirubin NEGATIVE (NEGATIVE) Urine Urobilinogen NEGATIVE (0-1) mg/dL Ur Leukocyte Esterase NEGATIVE (NEGATIVE) Urine WBC (Auto) 6-10 (0-5) /HPF Urine RBC (Auto) 6-10 (0-2) /HPF U Epithel Cells (Auto) NONE (FEW) /HPF Urine Bacteria (Auto) NONE (NEGATIVE) /HPF Urine Mucus (Auto) SLIGHT (NEGATIVE) /HPF Urine Culture Reflexed YES (NO) Urine Glucose >=500 (NEGATIVE) mg/dL POC Amnio Swab Test Urine Opiates Level (NEGATIVE) Ur Methadone (NEGATIVE) Urine Barbiturates (NEGATIVE) Ur Phencyclidine (PCP) (NEGATIVE) Urine Amphetamine (NEGATIVE) U Benzodiazepine Level (NEGATIVE) Urine Cocaine (NEGATIVE) Urine Marijuana (THC) (NEGATIVE) Antibody Screen (NEGATIVE) ABO Group Rh Factor Radiology Exams: Radiology Procedures Category Date Time Status KUB Routine Exams 07/06/20 21:45 Taken Multi-Disciplinary Progress Notes: Multi-Disciplinary Progress Notes 07/06/20 19:35 Respiratory Note by Rochelle Rosales I WAS CALLED TO ASSIST WITH THE CARE OF THIS DURING A STAT . THE BABY WAS BORN CRYING, AND NO DISTRESS WAS NOTED. THE BABY WAS BROUGHT TO THE WARMER AND WAS HE WAS DUSKY, BUT HAD GOOD MUSCLE TONE AND A HEART RATE OF 153BPM. DR. WAYNE ASSESSED LUNG SOUNDS AND SAID THEY WERE CLEAR TO AUSCULTATION. THE BABY'S SPO2 AT FOUR MINUTES AFTER WAS 87% WITH A HEART RATE OF 173BPM. AT SIX MINUTES AFTER , THE 'S SPO2 WAS 94% WITH A HEART RATE OF 173BPM. THE BABY'S RESPIRATORY EFFORT WAS GOOD AT ALL TIMES. NO FURTHER RESPIRATORY CARE WAS NEEDED AT THIS TIME. Initialized on 07/06/20 19:35 - END OF NOTE
--- NOTE | 2020-07-07 08:58 | XRAY ---
Indication: Query retained surgical sponge/gauze following section. Comparison: None KUB nonacute and nonobstructed with incidental cholecystectomy clips. No other radiopaque foreign body. Solid organs and osseous structures unremarkable.
[2020-07-07] MEDS: MOTRIN 400 MG PO PRN (09:39)
[2020-07-07] MEDS: Colace 100 MG PO SCH ×2 (09:40→21:12)
[2020-07-07] MEDS: FERREX 150 PO SCH (09:40)
[2020-07-07] MEDS ORDERED: Rhogam Plus 300 MCG IM ONE (10:00)
[2020-07-07] MEDS: Sodium Chloride 0.9% 1000 ML 1,000 ML IV SCH (12:04)
[2020-07-07 12:25] LABS: Absolute Neutrophil Ct (ANC) 10.04 (1.4-6.9); BASOPHIL % 0.2 % (0.0-0.4); Basophil (Absolute #) 0.03 (0-0.4); Eosinophil % 0.1 % (0.00-5.0); Eosinophil (Absolute #) 0.02 (0-0.5); Hematocrit 26.5 % (35-47); Hemoglobin 8.4 gm/dl (12.0-16.0); Lymphocyte (Absolute #) 2.45 (1.0-4.6); Lymphocytes % 18.1 % (24.0-44.0); Mean Cell Volume 86.9 fl (78-100); Mean Corpuscular Hemoglobin 27.5 pg (26-32); Mean Corpuscular Hgb Concent. 31.7 g/dl (32-36); Mean Platelet Volume 10.5 fl (7.5-11.0); Monocyte (Absolute #) 1.02 (0.0-1.3); Monocytes % 7.5 % (0.0-12.0); Neutrophil % 74.1 % (36.0-66.0); Platelet Count 247 K/mm3 (150-450); Red Blood Count 3.05 M/mm3 (4.1-5.4); Red Cell Distribution Width 14.1 % (11.5-14.0); White Blood Count 13.6 K/mm3 (4.0-10.5)
--- NOTE | 2020-07-07 12:49 | OP ---
SURGERY DATE/TIME: 07/06/20201901 PREOPERATIVE DIAGNOSIS: Intrauterine at 39 weeks and 2 days gestation with non-reassuring heart rate tracing and prolonged deceleration. POSTOPERATIVE DIAGNOSIS: Intrauterine at 39 weeks and 2 days gestation with non-reassuring heart rate tracing and prolonged deceleration with cord wrapped around the lower extremity. PROCEDURE: Primary section with low flap transverse uterine incision, Pfannenstiel skin incision, repair of uterine cervical extension. SURGEON: Mihai Hunter D.O. CATTLE DRIVER: Yaz Marquez, procedure tech. ANESTHESIA: Spinal. ESTIMATED BLOOD LOSS: 600 cc. COMPLICATIONS: None. INDICATIONS: The risks, benefits, indications and alternatives of the procedure were reviewed with the patient prior to procedure. The patient understood the risk of infection, bleeding, bowel injury, bladder injury, ureteral injury, uterine perforation, pelvic infection, thromboembolic disorder associated with this procedure however desires to have this procedure as a possible need to alleviate her current medical condition secondary to STAT situation for nonreassuring tracing. DESCRIPTION OF PROCEDURE AND FINDINGS: At this point the patient is taken to the operating room in STAT situation where her spinal anesthesia was found to adequate. She was then prepared and draped in normal sterile fashion in the dorsal supine position with a leftward tilt. A Pfannenstiel skin incision is made with scalpel and carried through to the underlying layer of the fascia. The fascia was then incised in the midline and the incision extended laterally with Membreno scissors. The superior aspect of the fascial incision was then grasped Corey clamps elevated and the underlying rectus muscles dissected off bluntly. Attention is then turned to the inferior aspect of this incision which in similar fashion was grasped, tented up with Corey clamps and the rectus muscles and dissected off bluntly. The rectus muscles were then at the midline and the peritoneum identified, tented up and entered sharply with Metzenbaum scissors. The peritoneal incision was then extended superiorly and inferiorly with good visualization of the bladder. The bladder blade was then inserted and the vesicouterine peritoneum identified, grasped with a pickup and entered sharply with Metzenbaum scissors. This incision was then extended laterally and bladder flap created digitally. The bladder blade was then re-inserted and the lower uterine segment incised in transverse fashion with a scalpel. The uterine incision was then extended laterally digitally. The bladder blade was then removed. The infant's head was delivered atraumatically. The nose and mouth were suctioned with the suction bulb and cord clamped and cut. The infant was then handed off to the awaiting nurses as well as Dr. Nguyen. The placenta was then removed manually. The uterus exteriorized and cleared of all clots and debris. The uterine incision was initially closed from the extension with 0 chromic suture. On the right side from that point the uterine incision was repaired with 1-0 chromic in running locked fashion. A second layer of the same suture was used to obtain excellent hemostasis. From this point the uterus is then returned to the abdomen. The gutters were cleared of clots. The peritoneum and muscle closed in interrupted fashion using 2-0 chromic suture. The fascia was reapproximated with 0 Vicryl suture in running fashion. The subcutaneous tissue was closed with 3-0 Vicryl suture and the skin was closed with absorbable kailey called INSORB. The patient tolerated the procedure well. Sponge, lap, needle and instrument counts were correct x2. The patient was then taken to the recovery room in stable condition. The patient delivered a live baby boy at 1911 hours. 's were 7 at 1 minute and 9 at 5 minutes.
--- NOTE | 2020-07-07 17:08 | PCM.DS ---
Discharge Summary Date of Admission: 07/06/20 15:48 Date of Discharge: july 08, 2020 Admitting Physician: MARISA KAMARA DO Consults: Consults on Case 07/06/20 16:16 Notify Anesthesia Provider PRN 07/06/20 22:50 Notify Physician ROUTINE Primary Care Provider: ANDIE AARON Allergies Allergies Penicillins Allergy (Unknown, Verified 07/06/20 08:21) [facility] Hospital Summary - Hospital Course Hospital Course: pt was 39 2/7 wks gestation admitted for induction with cytotec where she was 1-2cm/50/-2 and cytotec was started. after two doses of cytotec pt was noted to being in labor and received an epidural where she became 7 cm with no cervical change management specialist an hour and was starting to have prolonlged decelerations where emeergency csection was called and she eventually delivered live baby boy via csection at 1911 on july 06. during postop period did well and was noted to being anemic and was started on iron supplementation. at this time pt is stable for discharge on july 08 and was given instructions to fu in office in 2 wks. pt also given norco for pain management. all questions answered to her satisfaction. - Vitals & Intake/Output Vital Signs: Vital Signs Temperature 97.6 F 07/07/20 10:00 Pulse Rate 94 H 07/07/20 10:00 Respiratory Rate 20 07/07/20 10:00 Blood Pressure 114/76 07/07/20 10:00 O2 Sat by Pulse Oximetry 99 07/07/20 10:00 Intake & Output: Intake & Output 07/05/20 07/06/20 07/07/20 07/08/20 11:59 11:59 11:59 11:59 Intake Total 750 Output Total 2210 Balance -1460 Weight 90.718 kg - Lab Result Diagrams: 07/07/20 12:15 07/07/20 04:15 Lab Results-Last 24 Hrs: Lab Results-Last 24 Hours 07/06/20 07/06/20 07/06/20 Range/Units 08:03 20:12 20:12 WBC (4.0-10.5) K/mm3 RBC (4.1-5.4) M/mm3 Hgb (12.0-16.0) gm/dl Hct (35-47) % MCV (78-100) fl MCH (26-32) pg MCHC (32-36) g/dl RDW (11.5-14.0) % Plt Count (150-450) K/mm3 MPV (7.5-11.0) fl Gran % (36.0-66.0) % Eos # (Auto) (0-0.5) Absolute Lymphs (auto) (1.0-4.6) Absolute Monos (auto) (0.0-1.3) Lymphocytes % (24.0-44.0) % Monocytes % (0.0-12.0) % Eosinophils % (0.00-5.0) % Basophils % (0.0-0.4) % Absolute Granulocytes (1.4-6.9) Basophils # (0-0.4) Kleihauer-Betke F Hgb SEE SEPARATE REPORT Sodium (137-145) mmol/L Potassium (3.5-5.1) mmol/L Chloride (98-107) mmol/L Carbon Dioxide (22-30) mmol/L Anion Gap (5-15) MEQ/L BUN (7-17) mg/dL Creatinine (0.52-1.04) mg/dL Estimated GFR ML/MIN Glucose (74-106) mg/dL Calcium (8.4-10.2) mg/dL Total Bilirubin (0.2-1.3) mg/dL AST (14-36) U/L ALT (0-35) U/L Alkaline Phosphatase (38-126) U/L Serum Total Protein (6.3-8.2) g/dL Albumin (3.5-5.0) g/dL Urine Color (YELLOW) Urine Appearance (CLEAR) Urine pH (5-6) Ur Specific [place] (1.005-1.025) Urine Protein (Negative) Urine Ketones (NEGATIVE) Urine Blood (0-5) Leobardo/ul Urine Nitrite (NEGATIVE) Urine Bilirubin (NEGATIVE) Urine Urobilinogen (0-1) mg/dL Ur Leukocyte Esterase (NEGATIVE) Urine WBC (Auto) (0-5) /HPF Urine RBC (Auto) (0-2) /HPF U Epithel Cells (Auto) (FEW) /HPF Urine Bacteria (Auto) (NEGATIVE) /HPF Urine Mucus (Auto) (NEGATIVE) /HPF Urine Culture Reflexed (NO) Urine Glucose (NEGATIVE) mg/dL Antibody Screen NEGATIVE (NEGATIVE) Hep Bs Antigen Negative (Negative) ABO Group O Rh Factor NEGATIVE 07/06/20 07/06/20 07/07/20 Range/Units 20:18 22:26 04:15 WBC (4.0-10.5) K/mm3 RBC (4.1-5.4) M/mm3 Hgb (12.0-16.0) gm/dl Hct (35-47) % MCV (78-100) fl MCH (26-32) pg MCHC (32-36) g/dl RDW (11.5-14.0) % Plt Count (150-450) K/mm3 MPV (7.5-11.0) fl Gran % (36.0-66.0) % Eos # (Auto) (0-0.5) Absolute Lymphs (auto) (1.0-4.6) Absolute Monos (auto) (0.0-1.3) Lymphocytes % (24.0-44.0) % Monocytes % (0.0-12.0) % Eosinophils % (0.00-5.0) % Basophils % (0.0-0.4) % Absolute Granulocytes (1.4-6.9) Basophils # (0-0.4) Kleihauer-Betke F Hgb Sodium 131 L 132 L (137-145) mmol/L Potassium 3.3 L 4.3 D (3.5-5.1) mmol/L Chloride 105 107 (98-107) mmol/L Carbon Dioxide 15 L* 24 (22-30) mmol/L Anion Gap 14.4 5.7 (5-15) MEQ/L BUN 9 7 (7-17) mg/dL Creatinine 0.64 0.57 (0.52-1.04) mg/dL Estimated GFR > 60.0 > 60.0 ML/MIN Glucose 156 H 86 (74-106) mg/dL Calcium 9.0 8.5 (8.4-10.2) mg/dL Total Bilirubin 0.70 (0.2-1.3) mg/dL AST 25 (14-36) U/L ALT 18 (0-35) U/L Alkaline Phosphatase 186 H (38-126) U/L Serum Total Protein 6.2 L (6.3-8.2) g/dL Albumin 3.2 L (3.5-5.0) g/dL Urine Color YELLOW (YELLOW) Urine Appearance SLIGHTLY CLOUDY (CLEAR) Urine pH 6.0 (5-6) Ur Specific [place] 1.017 (1.005-1.025) Urine Protein 100 (Negative) Urine Ketones MODERATE (NEGATIVE) Urine Blood SMALL (0-5) Leobardo/ul Urine Nitrite NEGATIVE (NEGATIVE) Urine Bilirubin NEGATIVE (NEGATIVE) Urine Urobilinogen NEGATIVE (0-1) mg/dL Ur Leukocyte Esterase NEGATIVE (NEGATIVE) Urine WBC (Auto) 6-10 (0-5) /HPF Urine RBC (Auto) 6-10 (0-2) /HPF U Epithel Cells (Auto) NONE (FEW) /HPF Urine Bacteria (Auto) NONE (NEGATIVE) /HPF Urine Mucus (Auto) SLIGHT (NEGATIVE) /HPF Urine Culture Reflexed YES (NO) Urine Glucose >=500 (NEGATIVE) mg/dL Antibody Screen (NEGATIVE) Hep Bs Antigen (Negative) ABO Group Rh Factor 07/07/20 07/07/20 Range/Units 04:15 12:15 WBC 16.2 H 13.6 H (4.0-10.5) K/mm3 RBC 3.09 L 3.05 L (4.1-5.4) M/mm3 Hgb 8.5 L 8.4 L (12.0-16.0) gm/dl Hct 26.8 L 26.5 L (35-47) % MCV 86.7 86.9 (78-100) fl MCH 27.5 27.5 (26-32) pg MCHC 31.7 L 31.7 L (32-36) g/dl RDW 13.8 14.1 H (11.5-14.0) % Plt Count 260 247 (150-450) K/mm3 MPV 10.6 10.5 (7.5-11.0) fl Gran % 78.0 H 74.1 H (36.0-66.0) % Eos # (Auto) 0.01 0.02 (0-0.5) Absolute Lymphs (auto) 2.50 2.45 (1.0-4.6) Absolute Monos (auto) 1.04 1.02 (0.0-1.3) Lymphocytes % 15.4 L 18.1 L (24.0-44.0) % Monocytes % 6.4 7.5 (0.0-12.0) % Eosinophils % 0.1 0.1 (0.00-5.0) % Basophils % 0.1 0.2 (0.0-0.4) % Absolute Granulocytes 12.66 H 10.04 H (1.4-6.9) Basophils # 0.02 0.03 (0-0.4) Kleihauer-Betke F Hgb Sodium (137-145) mmol/L Potassium (3.5-5.1) mmol/L Chloride (98-107) mmol/L Carbon Dioxide (22-30) mmol/L Anion Gap (5-15) MEQ/L BUN (7-17) mg/dL Creatinine (0.52-1.04) mg/dL Estimated GFR ML/MIN Glucose (74-106) mg/dL Calcium (8.4-10.2) mg/dL Total Bilirubin (0.2-1.3) mg/dL AST (14-36) U/L ALT (0-35) U/L Alkaline Phosphatase (38-126) U/L Serum Total Protein (6.3-8.2) g/dL Albumin (3.5-5.0) g/dL Urine Color (YELLOW) Urine Appearance (CLEAR) Urine pH (5-6) Ur Specific [place] (1.005-1.025) Urine Protein (Negative) Urine Ketones (NEGATIVE) Urine Blood (0-5) Leobardo/ul Urine Nitrite (NEGATIVE) Urine Bilirubin (NEGATIVE) Urine Urobilinogen (0-1) mg/dL Ur Leukocyte Esterase (NEGATIVE) Urine WBC (Auto) (0-5) /HPF Urine RBC (Auto) (0-2) /HPF U Epithel Cells (Auto) (FEW) /HPF Urine Bacteria (Auto) (NEGATIVE) /HPF Urine Mucus (Auto) (NEGATIVE) /HPF Urine Culture Reflexed (NO) Urine Glucose (NEGATIVE) mg/dL Antibody Screen (NEGATIVE) Hep Bs Antigen (Negative) ABO Group Rh Factor Micro Results-Entire Visit: Microbiology 07/06/20 18:06 Urine Culture - Preliminary Urine, Indwelling Catheter NO GROWTH TO DATE - Radiology Exams Ordered Rad Exams-Entire Visit: Radiology Procedures Category Date Time Status KUB Routine Exams 07/06/20 21:45 Completed - Procedures and Test Procedures and Tests throughout Hospitalization: Therapy Orders & Screens 07/06/20 18:55 Standby STAT Comment: Diagnosis: IUP Final Diagnosis/Problem List - Final Discharge Diagnosis/Problem (1) delivery affecting Current Visit: Yes Status: Acute Code(s): P03.4 - AFFECTED BY DELIVERY - Discharge Disposition: Home, Self-Care Condition: Stable Prescriptions: New Hydrocodone/Acetaminophen [Hydrocodone-Acetamin 5-325 mg ] 1 tab PO Q4H PRN 4 Days #24 tablet MDD 6 PRN Reason: Pain Continue Vits W-Ca,Fe,FA(<1Mg) [] 1 each PO DAILY Calcium Carbonate [Tums] 200 mg PO 5XD Follow up with: ANDIE AARON NP [Primary Care Provider] - MARISA KAMARA DO [ACTIVE STAFF] - 2 weeks (should keep incision clean and dry with soap and water call for any issues that may arise should fu in 2 wks)
[2020-07-08] MEDS: MOTRIN 400 MG PO PRN ×2 (01:46→10:45)
[2020-07-08] MEDS: NORCO 5/325 MG PO PRN ×2 (06:14→15:29)
--- NOTE | 2020-07-08 09:16 | PCM.DCORD ---
- Discharge Disposition: Home, Self-Care Condition: Stable Prescriptions: New Hydrocodone/Acetaminophen [Hydrocodone-Acetamin 5-325 mg ] 1 tab PO Q4H PRN 4 Days #24 tablet MDD 6 PRN Reason: Pain Continue Vits W-Ca,Fe,FA(<1Mg) [] 1 each PO DAILY Calcium Carbonate [Tums] 200 mg PO 5XD Follow up with: ANDIE AARON NP [Primary Care Provider] - MARISA KAMARA DO [ACTIVE STAFF] - 2 weeks (should keep incision clean and dry with soap and water call for any issues that may arise should fu in 2 wks)
[2020-07-08] MEDS: FERREX 150 PO SCH (10:40)
[2020-07-08] MEDS: Colace 100 MG PO SCH (10:40)
[2020-07-08 19:42] VITALS: BP 131/92; PULSE 96; O2SAT 100
--- NOTE | 2020-07-08 22:01 | PCM.NOTE ---
Date and Time: 07/08/202158 POD 2 SP CSECTION PT DOING WELL WITHOUT COMPLAINTS ABUATING AND TOLERATING DIET VSS AFEBRILE ABD; SOFT INCISION C/D/INTACT PER NURSE ASSESSMENT HGB; STABLE A/P S/P CSECTION POD 2 WITH ANEMIA DC HOME TODAY SHOULD FU IN OFFICE IN 2 WKS SHOULD SUPPLEMENT WITH IRON UPON DISCHARGE OBJECTIVE DATA Vital Signs: Vital Signs - 24 hr Temp Pulse Resp BP Pulse Ox 07/08/20 14:00 97.6 F 96 H 18 131/92 100 07/08/20 08:00 98.1 F 93 H 18 121/70 98 07/08/20 02:00 98.6 F 89 18 119/77 99 Pain Assessment - Last Documented Pain Intensity [Anterior/ 3 Posterior] Pain Intensity 5 Pain Scale Used 0-10 Pain Scale Intake and Output: Intake & Output 07/06/20 07/07/20 07/08/20 07/09/20 11:59 11:59 11:59 11:59 Intake Total 750 1950 1500 Output Total 2210 Balance -1460 1950 1500 Weight 90.718 kg Radiology Exams: Radiology Procedures Category Date Time Status KUB Routine Exams 07/06/20 21:45 Completed Assessment/Plan (1) delivery affecting Status: Acute Code(s): P03.4 - AFFECTED BY DELIVERY
== END 2020-07-08 17:40 | disposition home or self-care (01) | DRG 788 ==
LOC: INTOOBSV 07:14 → OB 07:14 → EEVIPCON 07:14 → OBSVTOIN 07:14 → OB 07:15 → OBSVTOIN 15:48
PROVIDERS: ADMIT Obstetrics & Gynecology; ATTEND Obstetrics & Gynecology
PROC: 10D00Z1 Extraction of Products of Conception, Low, Open Approach (ICD-10-PCS; principal; 2020-07-06)
DX: O75.0 Maternal distress during labor and delivery (principal); O76 Abnormality in fetal heart rate and rhythm complicating labor and delivery; Z3A.39 39 weeks gestation of pregnancy; Z37.0 Single live birth
CPT/HCPCS: 36415; 59510; 64488; 74018; 76937; 76942; 80048; 80053; 80307; 81001; 84112; 85025; 85461; 86850; 86900; 86901; 87086; 87340; 94799; G0378; J1200; J2175; J2250; J2274; J2300; J2590; J2790; L0625; A9270-GY

== ENCOUNTER 2023-02-11 16:44 | Emergency (ER) | payer BC | END 2023-02-11 17:00 | disposition left against medical advice (07) | LOC: ED 16:44 | DX: Z53.21 Procedure and treatment not carried out due to patient leaving prior to being seen by health care provider (principal) ==